=== PATIENT | male | born 1975 | race Caucasian/White ===

== ENCOUNTER 2023-08-13 12:39 | Emergency (ER) | payer OTHER ==
[2023-08-13 12:59] VITALS: BP 145/86; PULSE 87; RESP 18; TEMP 98.6; BMI 46.1
[2023-08-13] MEDS ORDERED: LIDOCAINE 2.5%/PRILOCAINE 2.5% 30 GRAM TUBE TP ONE (13:15)
[2023-08-13] MEDS ORDERED: LIDOCAINE 1%/EPI 1:100000 (20 ML MULTI DOSE VIAL) ONE (13:34)
== END 2023-08-13 14:21 | disposition home or self-care (01) ==
LOC: JER 12:39
DX: K64.5 Perianal venous thrombosis (principal)
CPT/HCPCS: 99282-25

== ENCOUNTER 2023-10-24 09:56 | Emergency (ER) | payer OTHER ==
[2023-10-24 10:09] VITALS: BP 153/79; PULSE 83; RESP 20; TEMP 98.4; BMI 46.1
[2023-10-24] MEDS ORDERED: LIDOCAINE 1%/EPI 1:100000 (20 ML MULTI DOSE VIAL) ONE (10:48)
== END 2023-10-24 12:40 | disposition left against medical advice (07) ==
LOC: JER 09:56
DX: Z53.21 Procedure and treatment not carried out due to patient leaving prior to being seen by health care provider (principal)
CPT/HCPCS: 99281-25